=== PATIENT | female | born 1995 | race Caucasian/White ===

== ENCOUNTER 2021-09-01 16:25 | Emergency (ER) | payer BC, MEDICAID, SELFPAY ==
[2021-09-01 16:38] VITALS: BMI 38.2
[2021-09-01 16:49] VITALS: BP 107/64; PULSE 120; RESP 18; TEMP 36.7; O2SAT 99
--- NOTE | 2021-09-01 17:05 | ED_ITS ---
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 coughing little , slight itching no rash no throat swelling Related Data Home Medications Medication Instructions Recorded Confirmed famotidine 40 mg tablet 40 mg PO BEDTIME 09/01/21 09/01/21 fexofenadine 180 mg tablet 180 mg PO BID 09/01/21 09/01/21 Allergies Allergy/AdvReac Type Severity Reaction Status Date / Time aripiprazole [From ABILIFY] Allergy Severe tachycardia Unverified 08/13/20 18:55 gluten [GLUTEN] Allergy Severe CONSTIPATIO Unverified 08/13/20 18:55 N nortriptyline [NORTRIPTYLINE] Allergy Severe tachycardia Unverified 08/13/20 18:55 gabapentin Allergy Unknown Verified 09/01/21 16:43 ketamine Allergy Unknown Verified 09/01/21 16:43 tramadol Allergy Unknown Verified 09/01/21 16:43 Review of Systems Review of Systems: Yes all other systems are reviewed and are negative [facility] Past Medical History Medical History Anxiety Asthma Celiac disease Depression Lamberto-Danlos syndrome GERD (gastroesophageal reflux disease) Interstitial cystitis Pelvic congestion syndrome Thymoma Surgical History History of hysterectomy Social History Social History Alcohol intake: never Patient Tobacco Use Status: Never used Tobacco Use of substances other than those prescribed or required for medical reasons: No Advance Directives: No Advance Directives Information Provided: No Patient : No Physical Exam Vital Signs: Vital Signs: Last Vital Signs Temp 98.1 F 09/01/21 16:49 Pulse 112 H 09/01/21 18:28 Resp 18 09/01/21 18:28 BP 110/67 09/01/21 18:28 Pulse Ox 100 09/01/21 18:28 Body Mass Index 38.2 Appearance: Alert. Oriented X3. No acute distress. ENT: Pharynx normal. Oral Mucosa moist tongue and lips normal Neck: Normal inspection. Neck supple. CVS: Normal heart rate and rhythm. Pulses normal. Respiratory: No respiratory distress. Equal air entry bilateral, no wheezing/rales/rhonchi Abdomen: Soft and nontender. Bowel sounds are present, no mass palpable, no CVA tenderness Skin: Skin warm and dry. Normal skin color. Normal skin turgor. Extremities: No lower extremity edema. No calf tenderness Neuro: Oriented X 3. MDM - Allergic Reaction MDM Narrative Medical decision making narrative: Patient with history of bee sting anaphylaxis reaction already got epi Benadryl prior to arrival at this time patient does not have any symptoms of allergic reaction but patient is slightly anxious and says the itching is coming back will give Decadron 10 mg IV plan to discharge her home Discharge Plan Discharge Clinical Impression: Allergic reaction Patient Disposition: Home, Self-Care Instructions: General Allergic Reaction (ED) Additional Instructions: Take Benadryl 50 mg every 6 hours as needed Report to the ER if increased shortness of breath/vomiting/pressure Prescriptions: No Action fexofenadine 180 mg Tablet 180 mg PO BID RF: 0 famotidine 40 mg Tablet 40 mg PO BEDTIME RF: 0 Interventions: ED Discharge Assessment Last Done: 09/01/21 18:31 Discharge Date/Time: 09/01/21 18:32
[2021-09-01] MEDS: dexAMETHasone sod phosphate 10 MG/ML VIAL IVPUSH (17:10)
[2021-09-01] MEDS: ondansetron HCL 4 MG/2 ML VIAL IVPUSH (17:27)
[2021-09-01] MEDS: diphenhydrAMINE HCL 50 MG/ML VIAL 25 MG IVPUSH (17:54)
[2021-09-01 18:28] VITALS: BP 110/67; PULSE 112; RESP 18; O2SAT 100
== END 2021-09-01 18:32 | disposition home or self-care (01) ==
PROVIDERS: Emergency Provider Internal Medicine; PCP Internal Medicine
DX: T63.441A Toxic effect of venom of bees, accidental (unintentional), initial encounter (principal); Y92.9 Unspecified place or not applicable; F41.9 Anxiety disorder, unspecified; J45.909 Unspecified asthma, uncomplicated
CPT/HCPCS: 96374; 96375; 96376; 99284; J1100; J1200; J2405